=== PATIENT | female | born 1960 | race Caucasian/White ===

== ENCOUNTER 2018-06-19 21:33 | Emergency (ER) | payer OTHER ==
[~2018-06-19] VITALS: Ht 157.5 cm; Wt 102.1 kg
[~2018-06-19 21:33] MED LIST: BENTYL 20 MG TA20 M1 PO; DEPRESSION MED PO; DOXYCYCLINE 10100 M1 PO; HYDROCODON-ACE1 EAC7 PO; HYDROCODONE-AP1 EAC6 PO; IBUPROFEN 800800 M1 PO; INDERAL LA120 M1; INDERAL LA120 MG; KEFLEX500 MG PO; LASIX 40 MG TAB40 M2 PO; LEVAQUIN 500 M500 M2 PO; LEVAQUIN 500 M500 MG PO; NOHOMEMEDICATIONS; NORCO 10-325 T1 EACH PO; NORCO 5-325 TA1 EACH PO; OMEPRAZOLE40 MG PO; ONDANSETRON HCL4 M2 PO; POTASSIUM20 PO; PREVACID30 MG PO; PRILOSEC40 MG; PROPRANOLOL 1010 MG PO; TESSALON PERLE100 MG PO; VALTREX1000 MG PO; VENTOLIN HFA 1818 GM INH; ZOFRAN4 MG PO
[2018-06-19 21:54] LABS: ABSOLUTE BASOPHILS 0.1 thou/uL (0.0-0.2); ABSOLUTE EOSINOPHILS 0.5 thou/uL (0.0-0.7); ABSOLUTE MONOCYTES 0.6 thou/uL (0.0-1.2); ABSOLUTE NEUTROPHILS 5.6 thou/uL (1.6-8.1); BASOPHILS 1.3 %; EOSINOPHILS 5.5 %; HEMATOCRIT 40.9 % (37.0-47.0); HEMOGLOBIN 13.9 gm/dL (12.0-15.0); LYMPHOCYTES 30.2 %; MCH 28.7 pg (26.0-34.0); MCHC 33.9 g/dL (28.0-37.0); MCV 84.6 fL (80.0-100.0); MONOCYTES 6.1 %; MPV 8.7 fl. (7.2-11.1); NUCLEATED RBCS 0 /100WBC; PLATELET COUNT* 268 thou/uL (150-400); POLYS 56.9 %; RBC 4.83 mil/uL (4.20-5.00); RDW-CV 12.4 % (10.5-14.5); WBC 9.9 thou/uL (4.0-11.0)
[2018-06-19 22:05] LABS: INR 0.9; PROTIME 9.6 Seconds (9.20-11.50)
[2018-06-19 22:13] LABS: ANION GAP 6 mmol/L (7-16); BUN 15 mg/dL (7-18); CALCIUM 8.3 mg/dL (8.5-10.1); CHLORIDE 105 mmol/L (98-107); CO2 31 mmol/L (21-32); CREATININE 0.9 mg/dL (0.6-1.3); GLUCOSE 151 mg/dL (70-99); POTASSIUM 3.8 mmol/L (3.5-5.1); SODIUM 142 mmol/L (136-145); TROPONIN-I LEVEL <0.06 ng/mL (<0.06)
[2018-06-19 22:14] LABS: ALBUMIN 3.5 g/dL (3.4-5.0); ALKALINE PHOSPHATASE 86 U/L (46-116); LIPASE 132 U/L (73-393); NT-PRO BRAIN NAT PEPTIDE 131 pg/mL (<300); SGOT 15 U/L (15-37); SGPT 25 U/L (30-65); TOTAL BILIRUBIN 0.4 mg/dL (<0.1-1.0); TOTAL PROTEIN 7.1 g/dL (6.4-8.2)
[2018-06-19 22:33] LABS: URINE BILIRUBIN NEGATIVE (Negative); URINE BLOOD 2+ (Negative); URINE CLARITY CLEAR; URINE COLOR YELLOW; URINE GLUCOSE-RANDOM NEGATIVE (Negative); URINE KETONES NEGATIVE (Negative); URINE LEUKOCYTES-REFLEX NEGATIVE (Negative); URINE NITRITE-REFLEX NEGATIVE (Negative); URINE PROTEIN NEGATIVE (Negative); URINE SPECIFIC GRAVITY >= 1.030 (1.005-1.030); URINE UROBILINOGEN 0.2 E.U./dl (0.2-1.0)
[2018-06-19 22:54] LABS: MUCUS None Seen strn/LPF (None Seen); SQUAMOUS 4-10 Moderate /LPF (0-3)
[2018-06-19 22:55] LABS: CASTS None Seen /LPF (None Seen); CRYSTALS None Seen /LPF (None Seen); URINE RBC 0-2 Rare /HPF (0-2)
[2018-06-19 22:56] LABS: BACTERIA-REFLEX None Seen /HPF (None Seen); URINE WBC-REFLEX None Seen /HPF (0-5)
[2018-06-20] MEDS ORDERED: ZOFRAN ODT4 MG PO (00:49)
[2018-06-20] MEDS ORDERED: PROAIR HFA8.5 GM INH (00:49)
[2018-06-20] MEDS ORDERED: HYDROCODON-ACE1 EAC8 PO (00:49)
[2018-06-20 02:04] VITALS: BP 134/77
--- NOTE | 2018-06-20 15:06 | EKG ---
[place] [address] ELECTROCARDIOGRAM REPORT Name: MEEK PICKERING Room: [facility]#: [id number] Admission: 06/19/18 Attend Phys: Discharge: 06/20/18 Date of : 64 Report #: [id number] THIS REPORT FOR: //name// [facility] ED Test Date: 2018-06-19 Test Time: 21:54:59 Pat Name: MEEK PICKERING Department: Room: Gender: F Criminal Investigative Agent: RADHIKA : 1960 Requested By: Mary Servin Order Number: [id number] MD: Humberto Valdez Measurements Intervals [place] Rate: 79 P: 62 RI: 156 QRS: 27 QRSD: 80 T: 45 QT: 385 QTc: 442 Interpretive Statements Sinus rhythm Compared to ECG 08/27/2016 22:29:04 T-wave abnormality no longer present Electronically Signed On 06-20-2018 15:06:28 CDT by Humberto Valdez [email or web address] <ELECTRONICALLY SIGNED> By: Humberto Valdez MD, [facility] 06/20/18 [id number] Humberto Valdez MD, FACC /EPI
== END 2018-06-20 01:40 | disposition home or self-care (01) ==
LOC: M.ERS 21:33
PROVIDERS: Emergency Medicine
DX: R10.33 Periumbilical pain (principal); R11.2 Nausea with vomiting, unspecified; M54.5 Low back pain; G43.909 Migraine, unspecified, not intractable, without status migrainosus; K21.9 Gastro-esophageal reflux disease without esophagitis; J44.9 Chronic obstructive pulmonary disease, unspecified; I50.9 Heart failure, unspecified; Z86.73 Personal history of transient ischemic attack (TIA), and cerebral infarction without residual deficits; Z98.890 Other specified postprocedural states; Z90.49 Acquired absence of other specified parts of digestive tract; Z88.1 Allergy status to other antibiotic agents; Z88.0 Allergy status to penicillin

== ENCOUNTER 2019-03-18 20:24 | Emergency (ER) | payer OTHER ==
[~2019-03-18] VITALS: Ht 157.5 cm; Wt 103.4 kg
[~2019-03-18 20:24] MED LIST changes: +HYDROCODON-ACE1 EAC8 PO; +PROAIR HFA8.5 GM INH; +ZOFRAN ODT4 MG PO
[2019-03-18] MEDS ORDERED: DIABETIC PILL (20:33)
[2019-03-18] MEDS ORDERED: BUTALB-APAP-CA1 EACH PO (21:51)
[2019-03-18 22:28] VITALS: BP 138/81
== END 2019-03-18 22:29 | disposition home or self-care (01) ==
LOC: M.ERS 20:24
DX: G43.909 Migraine, unspecified, not intractable, without status migrainosus (principal); E11.9 Type 2 diabetes mellitus without complications; J44.9 Chronic obstructive pulmonary disease, unspecified; K21.9 Gastro-esophageal reflux disease without esophagitis; Z90.49 Acquired absence of other specified parts of digestive tract; Z98.890 Other specified postprocedural states; Z88.0 Allergy status to penicillin; Z88.1 Allergy status to other antibiotic agents

== ENCOUNTER 2019-04-26 15:50 | Emergency (ER) | payer OTHER ==
[~2019-04-26] VITALS: Ht 157.5 cm; Wt 104.3 kg
[~2019-04-26 15:50] MED LIST changes: +BUTALB-APAP-CA1 EACH PO; +DIABETIC PILL
[2019-04-26 17:56] VITALS: BP 113/61
== END 2019-04-26 17:57 | disposition home or self-care (01) ==
LOC: M.ERS 15:50
DX: S93.492A Sprain of other ligament of left ankle, initial encounter (principal); S93.692A Other sprain of left foot, initial encounter; G43.909 Migraine, unspecified, not intractable, without status migrainosus; K21.9 Gastro-esophageal reflux disease without esophagitis; J44.9 Chronic obstructive pulmonary disease, unspecified; E11.9 Type 2 diabetes mellitus without complications; Z88.0 Allergy status to penicillin; Z88.1 Allergy status to other antibiotic agents; Z98.890 Other specified postprocedural states; Z90.49 Acquired absence of other specified parts of digestive tract; W00.0XXA Fall on same level due to ice and snow, initial encounter; Y93.89 Activity, other specified; Y92.89 Other specified places as the place of occurrence of the external cause; Y99.8 Other external cause status

== ENCOUNTER 2019-05-02 23:57 | Emergency (ER) | payer OTHER ==
[~2019-05-02] VITALS: Ht 157.5 cm; Wt 102.1 kg
[2019-05-03] MEDS ORDERED: TORADOL 10 MG T10 MG PO (04:22)
[2019-05-03] MEDS ORDERED: HYDROCODON-ACE1 EAC7 PO (04:22)
[2019-05-03 04:40] VITALS: BP 136/89
== END 2019-05-03 04:40 | disposition home or self-care (01) ==
LOC: M.ERS 23:57
DX: M79.661 Pain in right lower leg (principal); R60.0 Localized edema; E11.9 Type 2 diabetes mellitus without complications; G43.909 Migraine, unspecified, not intractable, without status migrainosus; K21.9 Gastro-esophageal reflux disease without esophagitis; Z98.890 Other specified postprocedural states; Z90.89 Acquired absence of other organs; Z88.0 Allergy status to penicillin; Z88.1 Allergy status to other antibiotic agents

== ENCOUNTER 2019-11-08 20:29 | Emergency (ER) | payer OTHER ==
[~2019-11-08] VITALS: Ht 157.5 cm; Wt 103.9 kg
[~2019-11-08 20:29] MED LIST changes: +TORADOL 10 MG T10 MG PO
[2019-11-08] MEDS ORDERED: METFORMIN HCL500 M3 PO (20:42)
[2019-11-08] MEDS ORDERED: NORCO 5-325 TA1 EAC2 PO (21:13)
[2019-11-08 21:49] VITALS: BP 132/62
== END 2019-11-08 21:50 | disposition home or self-care (01) ==
LOC: M.ERS 20:29
DX: S86.812A Strain of other muscle(s) and tendon(s) at lower leg level, left leg, initial encounter (principal); G43.909 Migraine, unspecified, not intractable, without status migrainosus; K21.9 Gastro-esophageal reflux disease without esophagitis; J44.9 Chronic obstructive pulmonary disease, unspecified; E11.9 Type 2 diabetes mellitus without complications; Z90.49 Acquired absence of other specified parts of digestive tract; Z98.890 Other specified postprocedural states; Z88.0 Allergy status to penicillin; Z88.1 Allergy status to other antibiotic agents; X58.XXXA Exposure to other specified factors, initial encounter; Y93.89 Activity, other specified; Y92.89 Other specified places as the place of occurrence of the external cause; Y99.8 Other external cause status